=== PATIENT | male | born 1990 | race Caucasian/White ===

== ENCOUNTER 2022-03-22 08:00 | Outpatient (CLI) | payer OTHER ==
[2022-03-24 06:45] LABS: RPR Non Reactive (Non Reactive)
== END 2022-03-22 23:59 | disposition home or self-care (01) ==
LOC: LAB.R 08:00
PROVIDERS: ATTEND Registered Nurse
DX: R76.8 Other specified abnormal immunological findings in serum (principal); B34.9 Viral infection, unspecified
CPT/HCPCS: 86592; 87252

== ENCOUNTER 2022-09-22 08:00 | Outpatient (CLI) | payer OTHER ==
--- NOTE | 2022-09-22 16:11 | XRAY Report ---
PROCEDURE: Finger(s) RT INDICATIONS: RIGHT 5TH FINGER FX POST REDUCTION AND SPLINT TECHNIQUE: AP hand, 2 views of the fifth finger(s) acquired. COMPARISON: X-ray hand, finger 09/22/2022 FINDINGS: Overlying splint is present. Fracture at the base of the middle fifth phalanx with intra-articular ex tension is present. There is volar displacement of the distal fragment unchanged compared to prior ex am. IMPRESSION: Intra-articular proximal fifth middle phalanx fracture with unchanged displacement. Reviewed by: Micaela Singer MD on 09/22/2022 4:09 PM PDT Approved by: Micaela Singer MD on 09/22/2022 4:09 PM PDT Station ID: [id number]
--- NOTE | 2022-09-22 16:11 | XRAY Report ---
PROCEDURE: Finger(s) RT INDICATIONS: RIGHT 5TH FINGER FX 2ND ATTEMPT POST REDUCTION TECHNIQUE: AP hand, 2 views of the fifth finger(s) acquired. COMPARISON: X-ray hand, fingers 09/22/2022, 09/12/2022 FINDINGS: Intra-articular fracture of the middle fifth phalanx base is present. There is volar displacement of the distal fragment, unchanged. IMPRESSION: Fifth middle phalanx interarticular fracture with volar displacement, unchanged. Reviewed by: Micaela Singer MD on 09/22/2022 4:10 PM PDT Approved by: Micaela Singer MD on 09/22/2022 4:10 PM PDT Station ID: [id number]
--- NOTE | 2022-09-22 17:53 | XRAY Report ---
PROCEDURE: Hand 3 View RT INDICATIONS: RIGHT HAND INJURY/5TH FINGER FRACTURE TECHNIQUE: 3 views of the hand(s) acquired. COMPARISON: 09/12/2022 FINDINGS: Bones: Interval worsening of status of the PIP joint of the small finger. Again noted is a dorsal av ulsion fracture of the base of the middle phalanx. Previous subluxation is now an anterior dislocatio n. Soft tissues: Soft tissue swelling at the PIP joint. IMPRESSION: Worsening of appearance of base of middle phalanx. An avulsion fracture with anterior dislocation. Reviewed by: Armando Caballero MD on 09/22/2022 5:51 PM PDT Approved by: Armando Caballero MD on 09/22/2022 5:51 PM PDT Station ID: [id number]
== END 2022-09-22 23:59 | disposition home or self-care (01) ==
LOC: DI.WOS 08:00
PROVIDERS: ATTEND Orthopaedic Surgery
DX: S62.626A Displaced fracture of middle phalanx of right little finger, initial encounter for closed fracture (principal)